=== PATIENT | male | born 1940 | race Caucasian/White ===

== ENCOUNTER 2020-02-05 07:56 | Outpatient (CLI) | payer OTHER | END 2020-02-05 09:00 | disposition home or self-care (01) | LOC: WOUND MED 07:56 | DX: E11.622 Type 2 diabetes mellitus with other skin ulcer (principal); L97.322 Non-pressure chronic ulcer of left ankle with fat layer exposed | CPT/HCPCS: 11042; G0463; A4554; A4930; A6216; A6220 ==

== ENCOUNTER 2020-02-12 07:39 | Outpatient (CLI) | payer OTHER | END 2020-02-12 09:00 | disposition home or self-care (01) | LOC: WOUND MED 07:39 | DX: E11.622 Type 2 diabetes mellitus with other skin ulcer (principal); L97.322 Non-pressure chronic ulcer of left ankle with fat layer exposed | CPT/HCPCS: G0463; A4554; A4930; A6216 ==